=== PATIENT | female | born 1970 | race Caucasian/White ===

== ENCOUNTER 2019-10-20 00:32 | Day surgery (SDC) | payer BC, SELFPAY ==
[2019-10-15 15:36] VITALS: BMI 34.5
[2019-10-20 08:33] VITALS: BMI 23.9
--- NOTE | 2019-10-20 08:43 | WPDANESEPPF ---
Anes - Initial Pre Proc Eval Procedure: Operation Date: 10/20/19 09:00 Proposed Procedures p Screening Colonoscopy - Chuck Rojo MD Date/Time: 10/20/19 08:43 Surgeon: Chuck Rojo MD Pre Op Diagnosis: neoplasm screening Patient Data Age: 49 Gender: F Height: 5 ft 8 in Weight: 103 kg Allergies Allergy/AdvReac Type Severity Reaction Status Date / Time cephalexin Allergy Severe Dizziness Verified 10/20/19 08:31 clindamycin Allergy Severe Dizziness Verified 10/20/19 08:31 Home Medications Medication Instructions Recorded Confirmed Type alprazolam 1 mg PO HS 10/15/19 10/20/19 History dextroamphetamine-amphetamine 20 mg PO DAILY 10/15/19 10/20/19 History vit 32-ntky-edsey-dha 1 pkg PO DAILY 10/15/19 10/20/19 History [ + DHA] Patient hx anesthesia problems: none Family hx anesthesia problems: none PMFSH Past Medical History Medical History Anxiety Cervical cancer Smoker Anes - Eval Final PreProcedure Day of Procedure 10/20/19 08:43 Patient weight: normal Heart: regular rate and rhythm Lungs: clear to auscultation Airway: Mallampati scale class II Neurological: alert and oriented Last oral intake: >/= 8 hours ASA classification: II Emergent: no Anesthetic plan: proceed Anesthesia type and monitoring: general GIVS and standard monitoring Informed Consent: The patient's anesthetic plan and its attendant risks and benefits were discussed with the patient/family/POA. Questions were solicited and answers provided to the satisfaction of the patient/family/POA.
[2019-10-20] MEDS: LACTATED RINGERS 1,000 ML 150 ML IV CONT (08:54)
[2019-10-20 09:41] VITALS: BP 143/83; PULSE 77; RESP 17; O2SAT 100
--- NOTE | 2019-10-20 09:42 | PM.HPGS ---
History of Present Illness History of Present Illness Consent: Risks, benefits, and alternatives have been discussed and questions answered. Patient agrees to proceed with procedure. Chief complaint: neoplasm screening Narrative: Abigail Chris is a 49 year old female referred for screening colonoscopy. She mentioned that she has had loose stools for most of past 4 years. Using Imodium usually helps PMFSH Past Medical History Medical History Anxiety Cervical cancer Smoker Meds Home Medications and Allergies Home Medications Medication Instructions Recorded Confirmed Type + DHA 1 pkg PO DAILY 10/15/19 10/20/19 History alprazolam 1 mg PO HS 10/15/19 10/20/19 History dextroamphetamine-amphetamine 20 mg PO DAILY 10/15/19 10/20/19 History Allergies Allergy/AdvReac Type Severity Reaction Status Date / Time cephalexin Allergy Severe Dizziness Verified 10/20/19 08:31 clindamycin Allergy Severe Dizziness Verified 10/20/19 08:31 Exam Resp: Auscultation: clear to auscultation bilaterally Cardio: Rate: regular rate Rhythm: regular rhythm GI: GI Palp: Yes Soft to palpation and No Tenderness to palpation present (GI) Assessment and Plan Assessment and plan (1) Colon cancer screening: Code(s): Z12.11 - Encounter for screening for malignant neoplasm of colon Status: Acute Assessment and Plan: Colonoscopy with possible biopsy or polypectomy or cautery or injection of substances.
[2019-10-20 09:51] VITALS: BP 132/84; PULSE 71; RESP 17; O2SAT 100
[2019-10-20 10:01] VITALS: BP 138/88; PULSE 71; RESP 17; O2SAT 100
== END 2019-10-20 10:20 | disposition home or self-care (01) ==
PROVIDERS: PCP Nurse Practitioner Family; Visit Provider Internal Medicine Gastroenterology
PROC: 0DJD8ZZ Inspection of Lower Intestinal Tract, Via Natural or Artificial Opening Endoscopic (ICD-10-PCS; CPT 45378; principal; 2019-10-20 09:00)
DX: Z12.11 Encounter for screening for malignant neoplasm of colon (principal); R19.5 Other fecal abnormalities; K57.30 Diverticulosis of large intestine without perforation or abscess without bleeding; F41.9 Anxiety disorder, unspecified; F17.210 Nicotine dependence, cigarettes, uncomplicated; Z85.41 Personal history of malignant neoplasm of cervix uteri
CPT/HCPCS: 45380; 88305; J2704; J7120

== ENCOUNTER 2021-03-08 13:31 | Emergency (ER) | payer BC, SELFPAY ==
--- NOTE | ~2021-03-08 | CT_ITS ---
EXAMINATION: CT abdomen pelvis w con DATE: 03/08/2021 15:23 INDICATION: Right flank pain. TECHNIQUE: Computed tomography (CT) of the abdomen and pelvis was performed with 100 mL Omnipaque 350 intravenous contrast. Automated exposure control and iterative reconstruction technique were employe d. The dose-length product was 272.69 mGy-cm. COMPARISON: CT abdomen 12/07/2003 FINDINGS: The visualized portions of the lung bases demonstrate mild atelectasis. No pleural effusion . The heart size is normal. No pericardial effusion. There is a 5 mm cyst in the liver. The gallbladd er, spleen, pancreas, and adrenal glands are normal. There is severe right hydronephrosis and hydrour eter to the level of the iliac vessels. 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 There is mild le ft hydronephrosis and hydroureter to the level of the iliac vessels. There is diverticulosis of the c olon without evidence of diverticulitis. The appendix is not visualized. The inferior vena cava is du plicated. There is trace pelvic ascites. There are surgical clips and fat stranding in the pelvis. Th ere is subcutaneous edema in left thigh. There are no pathologically enlarged lymph nodes. There is n o free intraperitoneal fluid. There is mild thoracolumbar spondylosis. There is osteopenia in the pel vis, likely secondary to radiation therapy. IMPRESSION: 1. Severe right hydronephrosis and hydroureter and mild left hydronephrosis and hydroureter to the le katherine of the iliac vessels, likely secondary to scarring from prior surgery and radiation therapy. 2. Asymmetric subcutaneous edema of left thigh. Consider ultrasound to exclude deep vein thrombosis. Reviewed, dictated and finalized at location A. IMPRESSION: 1. Severe right hydronephrosis and hydroureter and mild left hydronephrosis and hydroureter to the level of the iliac vessels, likely secondary to scarring fr om prior surgery and radiation therapy. 2. Asymmetric subcutaneous edema of left thigh. Consider ultrasound to exclude deep vein thrombosis.
--- NOTE | ~2021-03-08 | US_ITS ---
EXAMINATION: US abdomen limited DATE: 03/08/2021 14:49 INDICATION: Right upper quadrant pain TECHNIQUE: Multiple grayscale and Doppler ultrasound images of the abdomen were obtained. COMPARISON: 08/24/2010 FINDINGS: The head and body of the pancreas are normal. The pancreatic tail is obscured by bowel gas. The liver is normal with normal echogenicity and echotexture. No surface nodularity. Normal hepatope dionicio flow in the main portal vein. The gallbladder is normal with no abnormal wall thickening, pericho lecystic fluid or stones. The normal common bile duct measures 4 mm. There was no sonographic Davies sign. Incidental note is made of moderate right-sided hydronephrosis. IMPRESSION: 1. Partially imaged moderate right hydronephrosis of unclear etiology. Recommend correlation with uri nalysis and consider further evaluation with CT. 2. Normal sonographic study of the gallbladder. Reviewed, dictated and finalized at location B. IMPRESSION: 1. Partially imaged moderate right hydronephrosis of unclear etiology. Recommen d correlation with urinalysis and consider further evaluation with CT. 2. Normal sonographic study of the gallbladder.
--- NOTE | ~2021-03-08 | CT_ITS ---
EXAMINATION: CT brain wo con INDICATION: Weakness COMPARISON: 04/24/2012 TECHNIQUE: Standard unenhanced head CT. The dose-length product (DLP) was 605.33 mGy-cm. The mA was a djusted according to patient size. Iterative reconstruction technique was employed. FINDINGS: There is no intracranial hemorrhage, acute infarction, or abnormal mass lesion. The ventric les are normal. There is no abnormal mass effect or midline shift. The willett-white matter differentiat ion is normal. The basal cisterns are patent. The orbits are normal. There is a chronic polyp or muco us retention cyst in the right maxillary sinus. IMPRESSION: 1. No acute intracranial abnormality. Reviewed, dictated and finalized at location B.
--- NOTE | ~2021-03-08 | XR_ITS ---
EXAMINATION: XR chest 1V INDICATION: Shortness of breath TECHNIQUE: AP view of the chest is obtained at 1443 hours COMPARISON: 03/23/2015 FINDINGS: The lungs are free of acute opacities. There is no pleural effusion or pneumothorax. The ca rdiomediastinal silhouette is normal. Thoracolumbar levocurvature is noted. IMPRESSION: 1. No acute cardiopulmonary abnormality. Reviewed, dictated and finalized at location B.
[2021-03-08 13:29] VITALS: BP 145/99; PULSE 85; RESP 18; TEMP 37.1; O2SAT 100
--- NOTE | 2021-03-08 13:38 | ECG_ITS ---
Measurements Intervals [place] Rate: 85 P: 44 W[place]: 147 QRS: 52 QRSD: 92 T: 49 QT: 393 QTc: 468 Interpretive Statements SINUS RHYTHM BASELINE ARTIFACT- I, II, AVR, AVL NORMAL ECG Electronically Signed On 03-08-2021 13:49:55 CDT by Brennen Solorzano D.O.
[2021-03-08 13:40] VITALS: PULSE 85
--- NOTE | 2021-03-08 13:58 | ED.GENADULT ---
HPI - General Adult General Chief complaint: Weakness Stated complaint: weakness Time Seen by Provider: 03/08/21 13:37 History of Present Illness HPI narrative: Patient is a 50-year-old female with past history of cervical cancer treated with radiation therapy resulting in chronic left lower extremity lymphedema who comes to the emergency room today with complaints of generalized weakness. Patient reports that symptoms started yesterday after she mowed her yard when she started feeling weak and nauseous. The symptoms have persisted. Today she developed a frontal headache and right upper quadrant pain. She denies any vomiting. She does feel short of breath. Denies any chest pain. Denies any fevers or any other symptoms or concerns. in room reports that he called EMS because patient was feeling very weak. Patient seems to have improved in route to EMS without any intervention. Patient agrees and says that she is feeling better now. Related Data Home Medications Medication Instructions Recorded Confirmed + DHA 1 pkg PO DAILY 10/15/19 10/20/19 alprazolam 1 mg PO HS 10/15/19 10/20/19 dextroamphetamine-amphetamine 20 mg PO DAILY 10/15/19 10/20/19 Allergies Allergy/AdvReac Type Severity Reaction Status Date / Time cephalexin Allergy Severe Dizziness Verified 03/08/21 13:38 clindamycin Allergy Severe Dizziness Verified 03/08/21 13:38 Review of Systems Constitutional: Constitutional: Reports as per HPI, Denies fever(s), Denies night sweats and Reports weakness Cardiovascular: Cardiovascular: Denies chest pain, Denies edema, Denies leg edema, Reports dyspnea and Denies orthopnea Respiratory: Respiratory: Denies cough and Reports dyspnea Gastrointestinal: Gastrointestinal: Reports abdominal pain, Denies constipation, Denies diarrhea, Denies nausea and Denies vomiting Musculoskeletal: Musculoskeletal: Denies abnormal gait, Denies back pain, Denies numbness and Denies tingling Neurologic: Denies Abnormal speech present, Denies abnormal gait, Denies numbness, Denies tingling and Denies weakness Psychiatric: Psychiatric: Denies homicidal ideation and Denies suicidal ideation PMFSH Past Medical History Medical History Anxiety Cervical cancer Smoker Social History Social History Gender identity (if verbalized by the patient): Female Exam Const: General: cooperative, healthy appearing, comfortable, no acute distress, well developed, alert, awake and Physically active Orientation/consciousness: patient oriented x3 HENMT: Head: normal to inspection, normocephalic and atraumatic Ears: external ears normal General nose exam: Normal external nose present and Other nasal findings present (Mild tenderness palpation over bilateral maxillary sinuses. ) Eyes: Pupils: Equal, round and reactive pupils present EOM: EOMs intact bilaterally Neck: Neck: normal visual inspection Chest: Chest palpation & inspection: normal inspection of the chest and no tenderness Resp: Effort & Inspection: normal respiratory effort and able to speak in complete sentences Auscultation: clear to auscultation bilaterally Cardio: Rate: regular rate Rhythm: regular rhythm GI: Inspection: normal to inspection GI Palp: Yes abdominal tenderness and Yes Tenderness to palpation present (GI) (Right upper quadrant tenderness to palpation. Positive Davies sign.) : General: Yes no CVA tenderness Back/Spine/Pelvis: Back: no CVA tenderness Skin: General skin exam: normal color Lesions: no lesions Other: Left lower extremity has chronic significant lymphedema. On anterior aspect mid left garrett there is an ulcer approximately 2 cm diameter with a pink wound bed. Several other skin changes consistent with chronic venous stasis. Neuro: General: patient oriented x3, no focal motor deficits and CN's II-XI intact bilaterally Cranial nerves: Yes Equal, round and reactive pupils present
[2021-03-08 14:20] LABS: Basophils Percent Auto 0.2 % (0.2-1.2); Eosinophils Percent Auto 0.2 % (0-4.4); Hematocrit 39.9 % (37.0-47.0); Hemoglobin 13.4 g/dL (12.0-15.0); Immature Granulocyte Absolute 0.08 K/mm3 (0.00-0.031); Immature Granulocyte Percent A 0.7 % (0-0.5); Lymphocytes Absolute Auto 1.03 K/mm3 (0.9-3.2); Lymphocytes Percent Auto 8.5 % (18.3-44.2); Mean Corpuscular HGB Conc 33.6 g/dl (32-36); Mean Corpuscular Hemoglobin 31.5 pg (26-34); Mean Corpuscular Volume 93.7 fl (80-100); Mean Platelet Volume 9.9 fl (7.4-10.4); Monocytes Percent Auto 7.9 % (2.6-8.5); Neutrophils Percent Auto 82.5 % (45.5-73.1); Platelet Count Result 205 k/mm3 (150-375); Red Blood Count 4.26 M/mm3 (4.2-5.4); Red Cell Distribution Width 13.8 % (11.5-14.5); White Blood Count 12.1 K/mm3 (4.5-10.0)
[2021-03-08 14:31] LABS: Alanine Aminotransferase 12 U/L (4-35); Albumin Level 3.6 g/dL (3.5-5.1); Alkaline Phosphatase 96 U/L (38-126); Anion Gap 5 mmol/L (8-16); Aspartate Amino Transferase 23 U/L (14-36); Bilirubin,Total 0.6 mg/dL (0.2-1.3); Blood Urea Nitrogen 7 mg/dL (7-17); Calcium 9.1 mg/dL (8.4-10.2); Carbon Dioxide 27 mmol/L (22-30); Chloride 105 mmol/L (98-107); Estimated CRCL calculation 77 ml/min; Estimated Glomerular Filt Rate > 60; Glucose 101 mg/dL (65-105); Lipase 22 U/L (23-300); Potassium 4.5 mmol/L (3.4-5.0); Sodium 137 mmol/L (137-145)
[2021-03-08 14:42] LABS: Troponin I < 0.012 ng/mL (0.000-0.034)
[2021-03-08] MEDS: LACTATED RINGERS 1,000 ML 999 ML IV CONT (15:11)
[2021-03-08] MEDS: KETOROLAC 15 MG/ML VIAL (*BKC) IV PUSH (15:11)
[2021-03-08 15:12] LABS: Add Urine Microscopic? YES; Appearance Urine Cloudy (Clear); Bacteria Urine Trace /hpf; Bilirubin Urine Negative (Negative); Blood Urine 2+ (Negative); Color Urine Yellow (Yellow); Glucose Urine UA Negative (Negative); Ketones Urine Negative (Negative); Leukocyte Esterase Ur 3+ LEU/UL (Negative); Nitrate Urine Positive (Negative); Protein Urine 1+ mg/dL (Negative); Specific Grav Ur 1.008 (1.001-1.035); Squamous Epithelial Cell Urine Occasional /hpf (Few); Urobilinogen Urine Negative mg/dL (<2.0); WBC Urine 31-50 /hpf
[2021-03-08] MEDS: CIPROFLOXACIN 400 MG/D5W 200ML 200 ML 200 MG IVPB (16:38)
[2021-03-08 16:40] VITALS: BP 135/71; PULSE 95; RESP 18; O2SAT 95
[2021-03-08 17:57] VITALS: BP 133/64; PULSE 66; RESP 17; O2SAT 100
--- NOTE | 2021-03-17 09:36 | PC.NURSE ---
LATE ENTRY This note is being entered to document information to the patient's record. The following information was omitted on [03/17/21], by [Ladi Mccullough stopped at 1738 on 03/08/21].
== END 2021-03-08 17:58 | disposition home or self-care (01) ==
PROVIDERS: Physician Assistant Medical; Emergency Provider Emergency Medicine; PCP Nurse Practitioner Family
DX: N39.0 Urinary tract infection, site not specified (principal); N13.30 Unspecified hydronephrosis; Z85.41 Personal history of malignant neoplasm of cervix uteri; I89.0 Lymphedema, not elsewhere classified; Z92.3 Personal history of irradiation; F41.9 Anxiety disorder, unspecified; Z87.891 Personal history of nicotine dependence
CPT/HCPCS: 36415; 70450; 71045; 74177; 76705; 80053; 81001; 83690; 84484; 85025; 87077; 87086; 87088; 87186; 93005; 96361; 96365; 96375; 99284; J0744; J1885; J7120; Q9967

== ENCOUNTER 2023-05-28 15:25 | Outpatient (CLI) | payer MEDICARE, SELFPAY ==
[2023-05-28 18:34] LABS: Influenza A QL RT-PCR Negative (Negative); Influenza B QL RT-PCR Negative (Negative); RSV RNA, RT-PCR Negative (Negative)
== END 2023-05-28 15:26 | disposition home or self-care (01) ==
LOC: ANHLAB 15:31
PROVIDERS: PCP Nurse Practitioner Family; Visit Provider Nurse Practitioner Family
DX: J06.9 Acute upper respiratory infection, unspecified (principal)
CPT/HCPCS: 87502; 87634

== ENCOUNTER 2024-07-08 15:05 | Emergency (ER) | payer MEDICARE, SELFPAY ==
[2024-07-08 15:39] VITALS: BP 144/79; PULSE 106; RESP 16; TEMP 37; O2SAT 97
--- NOTE | 2024-07-08 16:45 | ED.FEMALEGU ---
HPI - Female Genitourinary General Chief complaint: Urogenital-Female Stated complaint: elevated WBC, flank pain Time Seen by Provider: 07/08/24 16:45 Focused HPI: This is a 54 year old female that presents to the ER for elevated white blood cell count and hematuria. Reports she was seen at her PCP's office yesterday. She is not on any antibiotics currently. Reports left flank pain. Reports fever, nausea and vomiting. Denies dysuria. GENERAL: Well-appearing, well-nourished, and in no acute distress. HEAD: Normocephalic, atraumatic. CHEST: Clear to auscultation. ?No respiratory distress. HEART: Regular rate and rhythm.? NEURO: ?Alert and oriented x3. Patient screened in triage and initial orders placed.? ?Additional care and disposition to be based upon?diagnostic testing and treatment. Related Data Home Medications Medication Instructions Recorded Confirmed alprazolam 1 mg tablet 1 mg PO HS 10/15/19 10/20/19 dextroamphetamine-amphetamine 20 20 mg PO DAILY 10/15/19 10/20/19 mg tablet vits,calcium 91-iron 28 1 pkg PO DAILY 10/15/19 10/20/19 mg-folic 975 mcg-dha 200 mg oral pack ( + DHA) Allergies Allergy/AdvReac Type Severity Reaction Status Date / Time cephalexin Allergy Severe Dizziness Verified 03/08/21 13:38 clindamycin Allergy Severe Dizziness Verified 03/08/21 13:38 [facility] Past Medical History Medical History Anxiety Cervical cancer Smoker Social History Social History Gender identity (if verbalized by the patient): Female Course Vital Signs Vital signs: Vital Signs Temperature 98.6 F 07/08/24 15:39 Pulse Rate 106 H 07/08/24 15:39 Respiratory Rate 16 07/08/24 15:39 Blood Pressure 144/79 H 07/08/24 15:39 Pulse Oximetry 97 07/08/24 15:39 Temperature 98.6 F 07/08/24 15:39 Pulse Rate 106 H 07/08/24 15:39 Respiratory Rate 16 07/08/24 15:39 Blood Pressure 144/79 H 07/08/24 15:39 Pulse Oximetry 97 10/31/24 15:39 MDM - Female Genitourinary MDM Narrative Medical decision making narrative: patient left after medical screening exam and before any further evaluation or management Discharge Plan Discharge Clinical Impression: Acute flank pain Patient Disposition: Elopement After Seen by Prov Condition: Guarded Prognosis Prescriptions: No Action dextroamphetamine-amphetamine 20 mg tablet 20 mg PO DAILY alprazolam 1 mg tablet 1 mg PO HS + DHA 28 mg iron- 975 mcg-200 mg Combo Pack 1 pkg PO DAILY ciprofloxacin HCl 500 mg tablet 500 mg PO Q12H Qty: 10 0RF Follow-up/Referrals: PHYSICIAN NOT ON STAFF,NONSTAFF [Primary Care Provider] -
--- NOTE | 2024-07-08 18:40 | PC.NURSE ---
PT GOT UP OUT OF WHEELCHAIR AND WALKED OUT OF THE ED WITH A STEADY GAIT. DIDN'T STOP TO SPEAK WITH RN PRIOR TO LEAVING.
== END 2024-07-08 19:38 | disposition left against medical advice (07) ==
PROVIDERS: Emergency Provider Physician Assistant
DX: R10.9 Unspecified abdominal pain (principal); Z85.41 Personal history of malignant neoplasm of cervix uteri; F41.9 Anxiety disorder, unspecified
CPT/HCPCS: 99199

== ENCOUNTER 2024-07-16 14:29 | Outpatient (CLI) | payer MEDICARE, MEDICAID, SELFPAY ==
--- NOTE | ~2024-07-16 | CT_ITS ---
Non-contrast CT scan of the Abdomen and Pelvis Clinical indication: Abdominal pain Technique: 2.5 mm axial scans were obtained through the abdomen and pelvis without intravenous or or al contrast. Dose reduction technique was used on this scan by utilizing automated exposure control a nd iterative reconstruction technique. The dose-length product (DLP) was 202.50 mGy-cm. COMPARISON: 03/08/2021 Findings: Images through the lung bases reveal no abnormalities. There is severe bilateral hydroureteronephrosis, with relative tapering of the distal ureters. No obs tructing mass lesion or obstructing stones identified. There is a probable 2 mm nonobstructing right renal stone. The liver, spleen, pancreas, gallbladder, and adrenals appear normal. There are atherosclerotic calci fications of the aorta. . There is no evidence of bowel obstruction. Images through the pelvis were performed. There is no evidence of ascites or lymphadenopathy. Urinary bladder unremarkable. No pelvic mass seen. Patient appears to be post hysterectomy. Impression: Severe bilateral hydroureteronephrosis, worsened in the left kidney as compared to prior exam. No def inite obstructing mass lesion identified. 2 mm nonobstructing right renal stone. Reviewed, dictated and finalized at [facility]. ET SELLER Impression: Severe bilateral hydroureteronephrosis, worsened in the left kidney as compared to prior exam. No definite obstructing mass lesion identified. 2 mm nonobstructing right renal stone.
== END 2024-07-16 14:30 | disposition home or self-care (01) ==
DX: R10.9 Unspecified abdominal pain (principal); N20.0 Calculus of kidney
CPT/HCPCS: 74176

== ENCOUNTER 2025-08-19 15:35 | Outpatient (CLI) | payer MEDICARE, SELFPAY ==
--- NOTE | ~2025-08-19 | XR_ITS ---
EXAMINATION: KUB: DATE: 08/19/2025 INDICATION: Previous abdominal surgery. Worsening pain. Weight loss. History of kidney stones. TECHNIQUE: Supine AP view of the abdomen were obtained. COMPARISON: CT abdomen pelvis with contrast dated 03/08/2021. CT without contrast dated 07/16/2024. FINDINGS: Postoperative changes of pelvis on the left side. No abnormal calcific densities in the projection of kidneys. Mild fecal impaction of the rectum. IMPRESSION: 1. Limited supine radiograph shows no acute findings. Postsurgical changes of the left pelvis similar to prior study. Fecal impaction of the rectum. Reviewed, dictated and finalized at location T. RN IMPRESSION: 1. Limited supine radiograph shows no acute findings. Postsurgical changes of t he left pelvis similar to prior study. Fecal impaction of the rectum.
== END 2025-08-19 15:36 | disposition home or self-care (01) ==
DX: R11.10 Vomiting, unspecified (principal); R63.4 Abnormal weight loss
CPT/HCPCS: 74018